=== PATIENT | male | born 1980 | race Caucasian/White ===

== ENCOUNTER 2024-12-07 08:54 | Emergency (ER) | payer OTHER, SELFPAY ==
[2024-12-07 08:56] VITALS: BP 125/92
--- NOTE | 2024-12-07 09:35 | ED.GENMED ---
History of Present Illness
General
Chief Complaint: Swelling
Source: patient
Exam Limitations: none
Time Seen by Provider: 12/07/24 09:17
History of Present Illness
History of Present Illness:
Patient with a history of mast cell activation syndrome. Gets episodes of migratory swelling. Occasionally has been in his throat. He ate salmon 3 days ago. Shortly after he had nausea vomiting and diarrhea. This all resolved. However since
then he has had increased migratory swelling currently in his left hand and wrist and left foot. Also feels like his uvula is swollen. Mostly here because of concerns of airway issues. Has had a history of angioedema in the past. He is currently
on high doses of Zyrtec that he is increased. Started Pepcid yesterday.
Past History
Past History
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
Review of Systems
Review of Systems
All Other Systems: Not applicable
Constitutional: Denies fever
Respiratory: Reports no symptoms
Cardiac: Reports no symptoms
Phy Exam
Physical Exam
Physical Exam:
GENERAL: Alert and oriented in no apparent distress
EYE: Orbits normal.
NECK: Supple, no swelling
ENT: Pharynx without erythema. Mild uvula edema. No stridor no drooling no trismus. Airway open. Speaking normally.
CARDIAC: Regular rate and rhythm
LUNGS: Clear breath sounds,normal
NEUROLOGICAL: Alert and oriented , grossly non-focal
SKIN: Warm and dry, mild swelling at the left wrist and distal forearm without erythema or warmth. Mild swelling of the left foot. No hives no petechia or purpura
MUSCULOSKELETAL: No edema,no deformity.Good color
PSYCH: Normal and appropriate interaction.
Course
Orders/Labs/Results
Orders:
Orders
12/07/24 09:34
Famotidine [Pepcid] 20 mg PO NOW STA
Prednisone [Deltasone] 50 mg PO NOW STA
12/07/24 10:08
Basic Metabolic Panel Urgent
Complete Blood Count/With Diff Urgent
Lyme Progressive Urgent
Comment: ADD ON
12/07/24 11:36
Add On- LAB Urgent
Tests Added?: lyme progressive
Abnormal Lab Results
12/07/24
10:08
MPV 10.6 H fL
(7.4-10.4)
Neutrophils % 75.4 H %
(42.2-75.2)
Lymphocytes % 14.0 L %
(20.5-51.1)
12/07/24 10:08
12/07/24 10:08
Vital Signs
Initial and Last Documented VS:
Initial Vital Signs
Temp Pulse Resp BP Pulse Ox
98.2 F 90 18 125/92 98
12/07/24 08:56 12/07/24 08:56 12/07/24 08:56 12/07/24 08:56 12/07/24 08:56
Last Documented Vital Signs
Temp Pulse Resp BP Pulse Ox
98.2 F 82 18 132/82 98
12/07/24 13:25 12/07/24 13:25 12/07/24 13:25 12/07/24 13:25 12/07/24 13:25
MDM/Problems Addressed
Differential Diagnosis Includes:
Symptoms consistent with his mast cell disorder. Question if related to eating the salmon. Airway is open and clear. Highly doubt Lyme disease COVID or any other infectious issue. Discussed this with the patient. His airway is clear and open.
He has minimal uvula edema. Currently on high doses of H1 blockers. Started H2 blockers yesterday. Will add dose of Pepcid, steroids. No indication for epinephrine at this time. Observation for airway issue.
*Pulse Oximetry
SaO2: 98
Oxygen Mode of Delivery: Room air
Patient hypoxic: no
*Critical Care Note
Total Time (30-74mins, 75-104mins- exclusive of procedures): Not Applicable
Update Note
Update Note:
Patient was rechecked twice. Has remained stable. Unchanged. No worsening of symptoms. No airway issues. Stable for discharge to follow-up. Will do a tapering dose of prednisone. Patient asked about a leukotriene inhibitor. Feel Singulair
would not be unreasonable. 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
ED Attending Note
-
Portions of this chart may have been created with voice recognition software.� Occasional wrong word or��sound alike� substitutions may have occurred due to the inherent limitations of voice recognition software.
Discharge Plan
Departure
Patient Disposition: Home (Routine Discharge)
Date of Disposition: 12/07/24
Time of Disposition: 13:11
Patient with high blood pressure during this ER visit?: No
Discharge Problem:
Suspect mast cell activation flare
Prescriptions:
New
prednisone 10 mg tablet
10 mg PO DAILY Qty: 30 0RF
Rx Instructions:
5 tablets day 1. Then 1 less tablet every other day until gone
montelukast [Singulair] 10 mg tablet
10 mg PO DAILY Qty: 20 0RF
Referrals:
Martinez Mcconnell DO [Family Provider, Family Practice]
Activity Restrictions/Additional Instructions:
Continue your H1 katarzyna, H2 kaatrzyna.
Add the prednisone taper
To consider Singulair but I would like you to check with your scrap wheeler first
Return with worsening symptoms including worsening airway issues trouble breathing or swallowing increased swelling vomiting fever or any other concerning symptoms
The Lyme titer should be back in 3 to 4 days
Interventions
Interventions:
*Risk Screen - Suicide Last Done: 12/07/24 08:56
*General Assessment Last Done: 12/07/24 09:55
*Neglect/Abuse Screening Last Done: 12/07/24 08:56
*ED- Fall Risk Assessment Last Done: 12/07/24 09:55
*ED COVID-19 Vaccine History Last Done: 12/07/24 10:00
*Nursing Disposition Last Done: 12/07/24 13:25
ED- Cardiac Assessment Last Done: 12/07/24 09:55
ED- Pulmonary Assessment Last Done: 12/07/24 09:55
ED-Skin Assessment Last Done: 12/07/24 09:55
Discharge Date and Time
Discharge Date/Time: 12/07/24 13:26
Print Language: TAJIK
[2024-12-07 09:54] VITALS: BP 128/87
[2024-12-07 09:55] VITALS: BMI 29.8
[2024-12-07] MEDS: DELTASONE 50 MG PO (10:01)
[2024-12-07] MEDS: PEPCID 20 MG PO (10:01)
[2024-12-07 10:19] LABS: Hematocrit 41.7 % (39.0-52.0); Hemoglobin 14.5 g/dL (13.0-18.0); Mean Corp Hgb Conc. 34.8 g/dL (33.0-37.0); Mean Corpuscular Volume 86.3 fL (80.0-94.0); Nucleated Red Blood Cells % 0 % (-); Platelet Count 140 10^3/uL (130-400); Red Cell Dist. Width 11.9 % (11.5-14.5)
[2024-12-07 10:47] LABS: Blood Urea Nitrogen 17 mg/dl (9-20); Calcium 9.4 mg/dl (8.4-10.2); Carbon Dioxide 25 mmol/L (22-30); Chloride 105 mmol/L (98-107); Estimated Creatinine Clearance 99 ml/min; Glucose 99 mg/dl (70-99); Potassium 4.4 mmol/L (3.5-5.1); Sodium 138 mmol/L (135-145); eGFR > 60.00
[2024-12-07 11:00] VITALS: BP 134/80
[2024-12-07 12:00] VITALS: BP 119/70
[2024-12-07 13:25] VITALS: BP 132/82
--- NOTE | 2024-12-07 13:26 | EDRN ---
Reviewed discharge instructions with patient. Verbalized understanding. Ambulated with steady gait to the lobby.
[2024-12-10 13:59] LABS: Lyme Antibody Screen, EIA Negative (Negative)
== END 2024-12-07 13:26 | disposition home or self-care (01) ==
LOC: EMR 08:54
PROVIDERS: EMERGENCY PHYSICIAN Emergency Medicine; FAMILY PHYSICIAN Family Medicine
DX: M79.89 Other specified soft tissue disorders (principal); D89.40 Mast cell activation, unspecified
CPT/HCPCS: 99283; 80048; 85025; 86618